=== PATIENT | male | born 1980 | race Caucasian/White ===

== ENCOUNTER 2022-04-04 21:41 | Inpatient (IN) | payer OTHER ==
[2022-04-04] MEDS ORDERED: SODIUM CHLORIDE 0.9% 1,000 ML IV ONE (22:27)
[2022-04-04] MEDS ORDERED: LORazepam 2 MG/ML INJ IV STA (22:28)
[2022-04-04 22:46] LABS: Basophils # (A) 0.1 k/uL (0-0.2); Basophils % (A) 1 %; Eosinophils # (A) 0.1 k/uL (0-0.7); Eosinophils % (A) 1 %; HGB 14.4 gm/dL (13.0-17.5); Lymphocytes # (A) 1.1 k/uL (1.0-4.8); Lymphocytes % (A) 16 %; MCH 33.6 pg (25.0-35.0); MCHC 35.1 g/dL (31.0-37.0); MCV 95.9 fL (80.0-100.0); Mean Platelet Volume 10.2; Monocytes # (A) 0.5 k/uL (0-1.0); Monocytes % (A) 7 %; Neutrophils # (A) 5.3 k/uL (1.3-7.7); Neutrophils % (A) 74 %; Platelet Count 119 k/uL (150-450); RBC 4.27 m/uL (4.30-5.90); RDW 12.5 % (11.5-15.5); WBC 7.2 k/uL (3.8-10.6)
[2022-04-04 22:58] LABS: ALT 116 U/L (4-49); AST 84 U/L (17-59); African American GFR (CKD) >90 (>60 ml/min/1.73 sqM); Albumin 3.7 g/dL (3.5-5.0); Alcohol <10 mg/dL; Alkaline Phosphatase 85 U/L (38-126); Anion Gap 8 mmol/L; Blood Urea Nitrogen 5 mg/dL (9-20); Calcium 9.2 mg/dL (8.4-10.2); Carbon Dioxide 26 mmol/L (22-30); Chloride 102 mmol/L (98-107); Glucose 100 mg/dL (74-99); Magnesium 1.5 mg/dL (1.6-2.3); Non-African American GFR(CKD) >90 (>60 ml/min/1.73 sqM); Potassium 3.7 mmol/L (3.5-5.1); Sodium 136 mmol/L (137-145); Total Bilirubin 1.7 mg/dL (0.2-1.3); Total Protein 6.4 g/dL (6.3-8.2)
--- NOTE | 2022-04-04 23:03 | ED ---
General Adult HPI - General Chief complaint: Alcohol Stated complaint: Hallucinations Time Seen by Provider: 04/04/22 21:55 Source: patient Mode of arrival: EMS - History of Present Illness Initial comments: This patient is a 41-year-old man who presents here with symptoms that may be related to alcohol withdrawal. The patient states she had been at [facility] where he had gone to stop drinking. He states he had been drinking approximately a pint per day and stopped number days ago. He states that the medication that they were giving him there was making him feel not right. He states that he wasn't able to walk to the bathroom there. He states he was walking into the gan. The patient feeling anxious and not right. Patient believes they were giving him clonidine. Patient tried reporting his symptoms to staff there but states that they were not receptive to his complaints and that they had him sign out. The patient denies headache, change in vision, other neurologic symptoms, chest pain, dyspnea. -: days(s) Severity scale (1-10): 0 Consistency: constant Improves with: none Worsens with: none Associated Symptoms: confusion Treatments Prior to Arrival: other - Related Data Home Medications Medication Instructions Recorded Confirmed Amitriptyline HCl [Elavil] 10 mg PO DAILY 04/05/22 04/05/22 Calcium/Magnesiun/Zinc/Vitamin D 1 tab PO TID PRN 04/05/22 04/05/22 334/134/5mg Chlorpheniramine Maleate 4 mg PO Q4H PRN 04/05/22 04/05/22 [Chlor-Trimeton] Fenofibrate,Micronized 67 mg PO DAILY 04/05/22 04/05/22 [Fenofibrate] Hyoscyamine Sulfate [Levsin] 0.125 mg PO QID PRN 04/05/22 04/05/22 cloNIDine HCL [Catapres] 0.1 - 0.3 mg PO Q4H PRN 04/05/22 04/05/22 lisinopriL [Zestril] 10 mg PO DAILY 04/05/22 04/05/22 Previous Rx's Medication Instructions Recorded Folic Acid 1 mg PO DAILY #30 tab 04/06/22 Magnesium Oxide [Mag-Ox] 400 mg PO BID #14 tab 04/06/22 Multivitamins, Thera [Multivitamin 1 each PO DAILY #30 tab 04/06/22 (formulary)] Naltrexone HCl [Revia] 50 mg PO DAILY #30 tablet 04/06/22 Omeprazole [PriLOSEC] 20 mg PO BID #60 cap 04/06/22 Thiamine [Vitamin B-1] 100 mg PO DAILY #30 tab 04/06/22 Allergies Allergy/AdvReac Type Severity Reaction Status Date / Time amoxicillin Allergy Hives all Verified 04/05/22 11:27 over body Penicillins Allergy Hives all Verified 04/05/22 11:27 over body Review of Systems ROS Statement: Those systems with pertinent positive or pertinent negative responses have been documented in the HPI. ROS Other: All systems not noted in ROS Statement are negative. Constitutional: Denies: fever, weakness Eyes: Denies: vision change Respiratory: Denies: cough, dyspnea Cardiovascular: Reports: palpitations. Denies: chest pain, syncope Gastrointestinal: Reports: nausea. Denies: abdominal pain, vomiting, diarrhea Genitourinary: Denies: dysuria, hematuria Musculoskeletal: Denies: back pain Skin: Denies: rash Neurological: Denies: headache, weakness, numbness Psychiatric: Reports: anxiety. Denies: depression, homicidal thoughts, suicidal thoughts Past Medical History Additional Past Medical History / Comment(s): peptic ulcer, etoh abuse History of Any Multi-Drug Resistant Organisms: None Reported Past Surgical History: No Surgical Hx Reported Past Psychological History: No Psychological Hx Reported Smoking Status: Former smoker Past Alcohol Use History: Abuse Past Drug Use History: Marijuana General Exam General appearance: alert, in no apparent distress Head exam: Present: atraumatic, normocephalic Eye exam: Present: normal appearance. Absent: scleral icterus, conjunctival injection ENT exam: Present: mucous membranes dry Neck exam: Present: normal inspection Respiratory exam: Present: normal lung sounds bilaterally. Absent: respiratory distress, wheezes, rales, rhonchi, stridor Cardiovascular Exam: Present: normal rhythm, tachycardia, normal heart sounds. Absent: systolic murmur, diastolic murmur, rubs, gallop GI/Abdominal exam: Present: soft. Absent: distended, tenderness, guarding, rebound, rigid, mass, pulsatile mass, hernia Extremities exam: Present: normal inspection, normal capillary refill. Absent: pedal edema, calf tenderness Neurological exam: Present: alert, oriented X3. Absent: motor sensory deficit Skin exam: Present: warm, dry, intact, normal color. Absent: rash Course Vital Signs 04/04/22 04/05/22 22:00 00:42 Temperature 98.2 F 98.5 F Pulse Rate 117 H 115 H Respiratory 20 19 Rate Blood Pressure 124/88 130/88 O2 Sat by Pulse 98 97 Oximetry Medical Decision Making - Medical Decision Making This patient has a 41-year-old man here to have evaluation of suspected onset of delirium tremens. The patient's history consistent with developing of delirium tremens. The patient will be admitted for further treatment Were old charts reviewed? @ -[No Differential Diagnosis? @ -[Differential diagnosis includes but not limited to alcohol withdrawal, medication side effect, substance abuse, fluid/electrolyte abnormality, viral syndrome EKG interpreted by me (3pts min.)? @ -[none] X-rays interpreted by me (1pt min.)? @ -[See chart CT interpreted by me (1pt min.)? @ -[none] U/S interpreted by me (1pt. min.)? @ -[none] What testing was considered but not performed? (CT, X-rays, U/S, labs)? Why? @ [None What meds were considered but not given? Why? @ -[none] Did you discuss the management of the patient with other professionals? @ -[Admitting physician Did you reconcile home meds? @ -[Yes Was smoking cessation discussed for >3mins.? @ -[none] Was critical care preformed (if so, how long)? @ -[none] Were there social determinants of health that impacted care today? How? (Homelessness, low income, unemployed, alcoholism, drug addiction, transportation, low edu. Level, literacy, decrease access to med. care, fpc, rehab)? @ -[No Was there de-escalation of care discussed even if they declined? (Discuss DNR or withdrawal of care, Hospice)? @ -[No What co-morbidities impacted this encounter? (DM, HTN, Smoking, COPD, CAD, Cancer, CVA, Hep., AIDS, mental health diagnosis, sleep apnea, morbid obesity)? @ -[None Was patient admitted / discharged? @ -[Admitted Undiagnosed new problem with uncertain prognosis? @ -[none] Drug Therapy requiring intensive monitoring for toxicity (Heparin, Nitro, Insulin, Cardizem)? @ -[none] Were any procedures done? @ -[none] Diagnosis/symptom? @ -[1. Acute alcohol withdrawal syndrome Acute, or Chronic, or Acute on Chronic? @ -[default] Uncomplicated (without systemic symptoms) or Complicated (systemic symptoms)? @ -[Complicated Side effects of treatment? @ -[none] Exacerbation, Progression, or Severe Exacerbation] @ -[no] Poses a threat to life or bodily function? @ -[Yes - Lab Data Result diagrams: 04/04/22 22:36 04/06/22 04:33 Lab Results 04/04/22 04/04/22 Range/Units 22:36 22:36 WBC 7.2 (3.8-10.6) k/uL RBC 4.27 L (4.30-5.90) m/uL Hgb 14.4 (13.0-17.5) gm/dL Hct 41.0 (39.0-53.0) % MCV 95.9 (80.0-100.0) fL MCH 33.6 (25.0-35.0) pg MCHC 35.1 (31.0-37.0) g/dL RDW 12.5 (11.5-15.5) % Plt Count 119 L (150-450) k/uL MPV 10.2 Neutrophils % 74 % Lymphocytes % 16 % Monocytes % 7 % Eosinophils % 1 % Basophils % 1 % Neutrophils # 5.3 (1.3-7.7) k/uL Lymphocytes # 1.1 (1.0-4.8) k/uL Monocytes # 0.5 (0-1.0) k/uL Eosinophils # 0.1 (0-0.7) k/uL Basophils # 0.1 (0-0.2) k/uL Sodium 136 L (137-145) mmol/L Potassium 3.7 (3.5-5.1) mmol/L Chloride 102 (98-107) mmol/L Carbon Dioxide 26 (22-30) mmol/L Anion Gap 8 mmol/L BUN 5 L (9-20) mg/dL Creatinine 0.68 (0.66-1.25) mg/dL Est GFR (CKD-EPI)AfAm >90 (>60 ml/min/1.73 sqM) Est GFR (CKD-EPI)NonAf >90 (>60 ml/min/1.73 sqM) Glucose 100 H (74-99) mg/dL Calcium 9.2 (8.4-10.2) mg/dL Magnesium 1.5 L (1.6-2.3) mg/dL Total Bilirubin 1.7 H (0.2-1.3) mg/dL AST 84 H (17-59) U/L ALT 116 H (4-49) U/L Alkaline Phosphatase 85 (38-126) U/L Total Protein 6.4 (6.3-8.2) g/dL Albumin 3.7 (3.5-5.0) g/dL Serum Alcohol <10 mg/dL Disposition Clinical Impression: Alcohol withdrawal Disposition: ADMITTED IP TO THIS HOSP Condition: Fair Is patient prescribed a controlled substance at d/c from ED?: No
[2022-04-05] MEDS ORDERED: NALOXONE 0.4 MG/ML 1 ML VIAL IV PRN (00:19)
[2022-04-05] MEDS ORDERED: ONDANSETRON 4 MG/2 ML VIAL IVP PRN (00:19)
[2022-04-05] MEDS ORDERED: LORazepam 2 MG/ML INJ IV PRN ×3 (00:24)
[2022-04-05] MEDS: SODIUM CHLORIDE 0.9% 1,000 ML IV SCH ×2 (01:02→09:59)
[2022-04-05] MEDS: LORazepam 1 MG TAB PO PRN ×3 (01:59→20:18)
[2022-04-05] MEDS: diazePAM 5 MG TAB PO SCH ×3 (02:50→16:11)
[2022-04-05] MEDS ORDERED: chlordiazePOXIDE 25 MG CAP PO PRN (04:00)
[2022-04-05] MEDS ORDERED: ACETAMINOPHEN TAB 325 MG TAB PO PRN (06:00)
[2022-04-05] MEDS: THIAMINE 100 MG TAB PO SCH (07:48)
[2022-04-05] MEDS: FOLIC ACID 1 MG TAB PO SCH (07:48)
[2022-04-05] MEDS: FAMOTIDINE 20 MG TAB PO SCH ×2 (07:48→20:18)
[2022-04-05] MEDS ORDERED: LOPERAMIDE 2 MG CAP PO PRN (12:06)
[2022-04-05] MEDS ORDERED: HYOSCYAMINE SULFATE 0.125 MG TAB PO PRN (12:06)
[2022-04-05] MEDS ORDERED: ONDANSETRON 4 MG TAB PO PRN (12:06)
[2022-04-05] MEDS: AMITRIPTYLINE HCL 10 MG TAB PO SCH (12:56)
[2022-04-05] MEDS: FENOFIBRATE 54 MG TAB PO SCH (12:56)
[2022-04-05] MEDS: PANTOPRAZOLE 40 MG TABLET PO SCH ×2 (12:56→20:17)
[2022-04-05] MEDS: lisinopriL 10 MG TAB PO SCH (12:56)
--- NOTE | 2022-04-05 14:14 | P.PN ---
Progress Note - Text Progress Note Date: 04/05/22 Psychiatry consult brief note: Patient was evaluated today and does NOT meet criteria for inpatient psychiatric admission at this time. Continue CIWA and Valium taper for alcohol withdrawal. Full consult note to follow.
[2022-04-05] MEDS: ENOXAPARIN 40 MG/0.4 ML SYRINGE SQ SCH (16:11)
--- NOTE | 2022-04-05 21:08 | P.HPIM ---
History of Present Illness H&P Date: 04/05/22 Chief Complaint: Not feeling well This is a 41-year-old patient with no family doctor. Chronic stable medical conditions include alcohol use disorder, peptic ulcer disease, hypertension, hyperlipidemia GERD,. Patient has been drinking over a pint of alcohol a day for greater than 10 years. Patient is currently been admitted to the [facility] for last 3 days. Is getting some medication he sees starts with the alphabet C hasn't making him confused losing his head and patient been falling. Has patient's had decided to come in. Patient's front of alcohol withdrawal. Was put on CIWA scale Valium. Denies any abdominal pain. Appetite is fair. Review of systems: GEN.: Tired EYES: None HEENT: None NECK: None RESPIRATORY: None CARDIOVASCULAR: None GASTROINTESTINAL: Heartburn GENITOURINARY: None MUSCULOSKELETAL: None LYMPHATICS: None HEMATOLOGICAL: None PSYCHIATRY: Anxious NEUROLOGICAL: Had tremors Past medical history to include: Peptic ulcer disease, alcohol use disorder, GERD, hypertension, hyperlipidemia Social history: Currently living with his mother. No smoking stated was drinking at least a pint a day for more than 10 years. Currently at [facility]. Physical examination: VITAL SIGNS: 97.5, 117, 20, 124/88, 98% on room air upon presentation GENERAL: RONY 28.6, laying in bed a bit anxious. Face is flushed EYES: Pupils equal. Conjunctiva normal. HEENT: External appearance of nose and ears normal, oral cavity grossly normal. NECK: JVD not raised; masses not palpable. HEART: First and second heart sounds are normal; no edema. LUNGS: Respiratory rate normal; clear to auscultation. ABDOMEN: Soft, nontender, liver spleen not palpable, no masses palpable. PSYCH: Alert and oriented x3; mood and affect anxiousl. MUSCULOSKELETAL:No Clubbing/cyanosis;muscles-grossly intact NEUROLOGICAL: Cranial nerves grossly intact; no facial asymmetry, power and sensation grossly intact. LYMPHATICS: No lymph nodes palpable in the axilla and neck INVESTIGATIONS, reviewed in the clinical context: White count 7.2 hemoglobin 14.4 platelets 119 sodium 136 progression 3.7. 5 creatinine 0.6 magnesium 1.5 total bilirubin 1.7 AST 84 ALT 116 Serum alcohol less than 10 Assessment and plan: -Delirium tremens on presentation: Better CIWA scale. Valium. -Alcohol withdrawal syndrome Patient is on Valium 5 mg every 8. Will cut back to 2.5 mg every 8. CIWA scale scheduled to continue. Tremors are better. -Essential hypertension Zestril -Peptic ulcer disease Protonix -Alcoholic hepatitis -Hypomagnesemia Replace magnesium Valium. Cutback dose. CIWA scale. Increase activity. Encourage oral intake. Discussed with patient. Patient does not want to return [facility]. Past Medical History Additional Past Medical History / Comment(s): peptic ulcer, etoh abuse History of Any Multi-Drug Resistant Organisms: None Reported Past Surgical History: No Surgical Hx Reported Past Psychological History: No Psychological Hx Reported Smoking Status: Former smoker Past Alcohol Use History: Abuse Past Drug Use History: Marijuana Medications and Allergies Home Medications Medication Instructions Recorded Confirmed Type Acetaminophen Tab [Tylenol] 650 mg PO Q4H PRN 04/05/22 04/05/22 History Amitriptyline HCl [Elavil] 10 mg PO DAILY 04/05/22 04/05/22 History Ativan 1mg Injection 1 - 2 mg IM Q4H PRN 04/05/22 04/05/22 History Calcium/Magnesiun/Zinc/Vitamin D 1 tab PO TID PRN 04/05/22 04/05/22 History 334/134/5mg Chlorpheniramine Maleate 4 mg PO Q4H PRN 04/05/22 04/05/22 History [Chlor-Trimeton] Fenofibrate,Micronized 67 mg PO DAILY 04/05/22 04/05/22 History [Fenofibrate] Hyoscyamine Sulfate [Levsin] 0.125 mg PO QID PRN 04/05/22 04/05/22 History Ibuprofen [Motrin] 600 mg PO Q6H PRN 04/05/22 04/05/22 History LORazepam [Ativan] 1 - 2 mg PO Q4-6H PRN 04/05/22 04/05/22 History Loperamide [Imodium] 4 mg PO QID PRN 04/05/22 04/05/22 History Omeprazole [PriLOSEC] 20 mg PO BID 04/05/22 04/05/22 History cloNIDine HCL [Catapres] 0.1 - 0.3 mg PO Q4H PRN 04/05/22 04/05/22 History lisinopriL [Zestril] 10 mg PO DAILY 04/05/22 04/05/22 History ondansetron HCL [Zofran] 8 mg PO Q6H PRN 04/05/22 04/05/22 History traZODone HCL [Desyrel] 50 - 150 mg PO HS PRN 04/05/22 04/05/22 History Allergies Allergy/AdvReac Type Severity Reaction Status Date / Time amoxicillin Allergy Hives all Verified 04/05/22 11:27 over body Penicillins Allergy Hives all Verified 04/05/22 11:27 over body Physical Exam Vitals: Vital Signs Temp Pulse Pulse Resp BP BP Pulse Ox 04/05/22 07:06 98.2 F 115 H 18 125/94 99 04/05/22 01:34 97.5 F L 105 H 18 128/84 97 04/05/22 00:42 98.5 F 115 H 19 130/88 97 04/04/22 22:00 98.2 F 117 H 20 124/88 98 Intake and Output 04/04/22 04/05/22 04/05/22 22:59 06:59 14:59 Output Total 250 Balance -250 Output: Urine 250 Other: # Voids 1 Weight 92.986 kg 92.986 kg Results CBC & Chem 7: 04/04/22 22:36 04/04/22 22:36 Labs: Abnormal Lab Results - Last 24 Hours (Table) 04/04/22 04/04/22 Range/Units 22:36 22:36 RBC 4.27 L (4.30-5.90) m/uL Plt Count 119 L (150-450) k/uL Sodium 136 L (137-145) mmol/L BUN 5 L (9-20) mg/dL Glucose 100 H (74-99) mg/dL Magnesium 1.5 L (1.6-2.3) mg/dL Total Bilirubin 1.7 H (0.2-1.3) mg/dL AST 84 H (17-59) U/L ALT 116 H (4-49) U/L
[2022-04-05] MEDS: MAGNESIUM OXIDE 400 MG TAB PO SCH (21:28)
[2022-04-05] MEDS: MULTIVITAMINS, THERA 1 EACH TAB PO SCH (21:28)
[2022-04-06] MEDS: diazePAM 5 MG TAB PO SCH ×2 (00:10→09:11)
--- NOTE | 2022-04-06 00:30 | P.CN ---
Psychiatric Consult - . Consult date: 04/05/22 Consult:: IDENTIFYING DATA: This patient is a 41 year old male with alcohol dependence who presented from [facility] for alcohol detox. REASON FOR REFERRAL: Psychiatry was consulted for alcohol withdrawal. HISTORY OF PRESENT ILLNESS: Per ER note, "This patient is a 41-year-old man who presents here with symptoms that may be related to alcohol withdrawal. The patient states she had been at [facility] where he had gone to stop drinking. He states he had been drinking approximately a pint per day and stopped number days ago. He states that the medication that they were giving him there was making him feel not right. He states that he wasn't able to walk to the bathroom there. He states he was walking into the gan. The patient feeling anxious and not right. Patient believes they were giving him c lonidine. Patient tried reporting his symptoms to staff there but states that they were not receptive to his complaints and that they had him sign out. The patient denies headache, change in vision, other neurologic symptoms, chest pain, dyspnea." On my evaluation today, patient is resting in bed, is alert and oriented to person, place, time and situation. No tremors, shaking, sweating, or agitation observed. He is tolerating his Valium taper, currently at 5 mg Q8H scheduled, and so far he has received Ativan 2 mg IV x 1, Ativan 1 mg po x 1 today. His vital signs reviewed and he is mildly tachycardic. He reports feeling somewhat anxious, but denies depressed mood. At this time patient denies any suicidal or homicidal ideations, intent or plan. Patient denies any auditory, visual halluci nations and denies any paranoia or delusions. Patients admits to using drinking 1 pint of liquor per day and wants to quit. He does not plan to return to [facility] following discharge because he didn't like it there, and instead plans to do AA meetings to abstain from alcohol. He reports his last drink of alcohol was last Wednesday. PAST PSYCHIATRIC HISTORY: Patient has a a history of alcoholism. Patient denies being on any psychiatric medications. Patient denies any previous psychiatric hospitalizations. Patient denies any psychiatric outpatient follow-up. He reports he previously received counseling near [address] [place] [address], but this was years ago. Patient denies any history of suicide attempts in the past. PAST MEDICAL HISTORY: Additional Past Medical History / Comment(s): peptic ulcer, etoh abuse History of Any Multi-Drug Resistant Organisms: None Reported Past Surgical History: No Surgical Hx Reported Past Psychological History: No Psychological Hx Reported Smoking Status: Former smoker Past Alcohol Use History: Abuse Past Drug Use History: Marijuana ALLERGIES: as per EMR. CHEMICAL DEPENDENCY HISTORY: Patients admits to using drinking 1 pint of liquor per day and wants to quit. He reports his last drink of alcohol was last Wednesday. He is a former smoker and quit smoking cigarettes 7-8 years ago. He denies drug use. FAMILY PSYCHIATRIC/SUBSTANCE USE HISTORY: Father with alcoholism SOCIAL HISTORY: Patient was born and raised in [place], [place]. He was living with his girlfriend of 18 years until a recent break-up, and he has been staying with his mother temporarily, but thinks he and his girlfriend will be getting back together and he can go back to living there. Never , has 3 kids. MENTAL STATUS EXAM: General Appearance: Patient appears to be stated age, slightly overweight male, laying in bed with covers on, fair hygiene and grooming with fair eye contact. Behavior: Patient is calmly lying in bed without any agitated behavior. Speech: Patient's speech is fluent and non-pressured. Mood/Affect: Patient reports their mood is "ok" a bit anxious, affect is congruent Suicidality/Homicidality: Patient denies having any suicidal or homicidal ideation intent or plan. Perceptions: Patient denies any visual hallucinations and denies any auditory hallucinations Though content/process: There is no evidence of any delusional thought content and thought process is linear and goal-directed. Memory and concentration: AOX3, grossly intact for the purposes of this session. Can spell "WORLD" backwards Judgment and insight: fair IMPRESSIONS: Alcohol use disorder, severe dependence Alcohol withdrawal Unspecified anxiety disorder PLAN: -At this time patient DOES NOT meet criteria for inpatient psychiatric admission. -Delirium precautions recommended with patient including - avoiding use of narcotics and ORNAMENT MAKER HAND sedatives, limit anticholinergic medications when possible, frequent re-orientation, minimize use of restraints, open window shades during t he day and close them at night -Would recommend the following medication changes/additions: Continue CIWA and Valium taper and Ativan PRN as you are. Monitor vital signs closely. - Continue to re-evaluate safety and initiate 1:1 sitter if safety concerns arise. -housekeeping laundry worker to provide patient with outpatient mental health/psychiatry resources for appropriate follow up upon discharge. He would benefit from psychotherapy for anxiety and life stressors. -Wire Basket Maker spoke with patient about substance abuse and the harmful effects on medical and mental health, patient verbally understood and agreed. -housekeeping laundry worker to provide patient substance use treatment resources including AA/NA meetings in the community. -housekeeping laundry worker to provide patient with access line number to call for inpatient substance rehab. [-Communicated plan to patient's nurse] -Psychiatry will sign off at this time -Please contact with any questions. 04/05/22 12:49 04/05/22 12:55 04/06/22 00:15
[2022-04-06 01:54] VITALS: RESP 17
[2022-04-06 05:03] LABS: ALT 98 U/L (4-49); AST 77 U/L (17-59); African American GFR (CKD) >90 (>60 ml/min/1.73 sqM); Albumin 3.8 g/dL (3.5-5.0); Albumin/Globulin Ratio 1.4; Alkaline Phosphatase 87 U/L (38-126); Anion Gap 9 mmol/L; Blood Urea Nitrogen 3 mg/dL (9-20); Calcium 8.9 mg/dL (8.4-10.2); Carbon Dioxide 27 mmol/L (22-30); Chloride 103 mmol/L (98-107); Globulin 2.7 g/dL; Glucose 93 mg/dL (74-99); Magnesium 1.8 mg/dL (1.6-2.3); Non-African American GFR(CKD) >90 (>60 ml/min/1.73 sqM); Potassium 3.8 mmol/L (3.5-5.1); Sodium 139 mmol/L (137-145); Total Bilirubin 1.4 mg/dL (0.2-1.3); Total Protein 6.5 g/dL (6.3-8.2)
[2022-04-06 07:18] VITALS: BP 138/99; PULSE 93; TEMP 97.8
[2022-04-06] MEDS ORDERED: THIAMINE 100 MG TAB PO SCH (09:00)
[2022-04-06] MEDS: PANTOPRAZOLE 40 MG TABLET PO SCH (09:10)
[2022-04-06] MEDS: MAGNESIUM OXIDE 400 MG TAB PO SCH (09:10)
[2022-04-06] MEDS: MULTIVITAMINS, THERA 1 EACH TAB PO SCH (09:10)
[2022-04-06] MEDS: ENOXAPARIN 40 MG/0.4 ML SYRINGE SQ SCH (09:11)
[2022-04-06] MEDS: FOLIC ACID 1 MG TAB PO SCH (09:11)
[2022-04-06] MEDS: lisinopriL 10 MG TAB PO SCH (09:11)
[2022-04-06] MEDS: THIAMINE 100 MG TAB PO SCH (09:11)
[2022-04-06] MEDS: AMITRIPTYLINE HCL 10 MG TAB PO SCH (09:11)
[2022-04-06] MEDS: FENOFIBRATE 54 MG TAB PO SCH (09:11)
--- NOTE | 2022-04-06 21:48 | P.DS ---
Providers Date of admission: 04/05/22 00:24 Expected date of discharge: 04/06/22 Attending physician: Prabhjot Paniagua Consults: 04/05/22 00:19 Consult Physician Routine Consulting Provider: Laura Escobedo Consult Reason/Comments: Alcohol withdrawal. Do you want consulting provider notified?: Yes Primary care physician: Stated None Hospital Course: Chief Complaint: Not feeling well This is a 41-year-old patient with no family doctor. Chronic stable medical conditions include alcohol use disorder, peptic ulcer disease, hypertension, hyperlipidemia GERD,. Patient has been drinking over a pint of alcohol a day for greater than 10 years. Patient is currently been admitted to the [facility] for last 3 days. Is getting some medication he sees starts with the alphabet C hasn't making him confused losing his head and patient been falling. Has patient's had decided to come in. Patient's front of alcohol withdrawal. Was put on CIWA scale Valium. Denies any abdominal pain. Appetite is fair. April 06: Doing well. Half Valium. Discussed with patient. Discussed about naltrexone. Agreeable. Follow with Dr. Mackenzie Godinez about chronic hepatitis. Patient has a PCP out of the area with with home he will follow. Questions answered. Discussion and discharge planning more than 35 minutes Past medical history to include: Peptic ulcer disease, alcohol use disorder, GERD, hypertension, hyperlipidemia Social history: Currently living with his mother. No smoking stated was drinking at least a pint a day for more than 10 years. Currently at [facility]. Physical examination: VITAL SIGNS: 97.8, 93, 17, 138.99, 98% room air GENERAL: Comfortable EYES: Pupils equal. Conjunctiva normal. HEENT: External appearance of nose and ears normal, oral cavity grossly normal. NECK: JVD not raised; masses not palpable. HEART: First and second heart sounds are normal; no edema. LUNGS: Respiratory rate normal; clear to auscultation. ABDOMEN: Soft, nontender, liver spleen not palpable, no masses palpable. PSYCH: Alert and oriented x3; mood and affect anxiousl. INVESTIGATIONS, reviewed in the clinical context: April 06: AST 77 ALT 98 White count 7.2 hemoglobin 14.4 platelets 119 sodium 136 progression 3.7. 5 creatinine 0.6 magnesium 1.5 total bilirubin 1.7 AST 84 ALT 116 Serum alcohol less than 10 Assessment and plan: -Delirium tremens on presentation: Better CIWA scale. Valium. -Alcohol withdrawal syndrome: Improved -Alcohol use disorder Patient counseled.. Naltrexone -Essential hypertension Zestril -Peptic ulcer disease Protonix -Alcoholic hepatitis -Hypomagnesemia Replace magnesium Disposition: Home Plan - Discharge Summary Discharge Rx Participant: No New Discharge Prescriptions: New Multivitamins, Thera [Multivitamin (formulary)] 1 each PO DAILY #30 tab Thiamine [Vitamin B-1] 100 mg PO DAILY #30 tab Naltrexone HCl [Revia] 50 mg PO DAILY #30 tablet Folic Acid 1 mg PO DAILY #30 tab Magnesium Oxide [Mag-Ox] 400 mg PO BID #14 tab Continue Chlorpheniramine Maleate [Chlor-Trimeton] 4 mg PO Q4H PRN PRN Reason: Allergy Symptoms Calcium/Magnesiun/Zinc/Vitamin D 334/134/5mg 1 tab PO TID PRN PRN Reason: muscle cramps Amitriptyline HCl [Elavil] 10 mg PO DAILY Omeprazole [PriLOSEC] 20 mg PO BID #60 cap Discontinued Acetaminophen Tab [Tylenol] 650 mg PO Q4H PRN PRN Reason: Fever And/ Or Pain Loperamide [Imodium] 4 mg PO QID PRN PRN Reason: Diarrhea ondansetron HCL [Zofran] 8 mg PO Q6H PRN PRN Reason: Nausea And Vomiting traZODone HCL [Desyrel] 50 - 150 mg PO HS PRN PRN Reason: Insomnia Ativan 1mg Injection 1 - 2 mg IM Q4H PRN PRN Reason: withdrawal Ibuprofen [Motrin] 600 mg PO Q6H PRN PRN Reason: Fever And/ Or Pain LORazepam [Ativan] 1 - 2 mg PO Q4-6H PRN PRN Reason: withdrawal No Action Fenofibrate,Micronized [Fenofibrate] 67 mg PO DAILY Hyoscyamine Sulfate [Levsin] 0.125 mg PO QID PRN PRN Reason: Gi Upset lisinopriL [Zestril] 10 mg PO DAILY cloNIDine HCL [Catapres] 0.1 - 0.3 mg PO Q4H PRN PRN Reason: bp greater than 160/100 Discharge Medication List Amitriptyline HCl [Elavil] 10 mg PO DAILY 04/05/22 [History] Calcium/Magnesiun/Zinc/Vitamin D 334/134/5mg 1 tab PO TID PRN 04/05/22 [History] Chlorpheniramine Maleate [Chlor-Trimeton] 4 mg PO Q4H PRN 04/05/22 [History] Fenofibrate,Micronized [Fenofibrate] 67 mg PO DAILY 04/05/22 [History] Hyoscyamine Sulfate [Levsin] 0.125 mg PO QID PRN 04/05/22 [History] cloNIDine HCL [Catapres] 0.1 - 0.3 mg PO Q4H PRN 04/05/22 [History] lisinopriL [Zestril] 10 mg PO DAILY 04/05/22 [History] Folic Acid 1 mg PO DAILY #30 tab 04/06/22 [Rx] Magnesium Oxide [Mag-Ox] 400 mg PO BID #14 tab 04/06/22 [Rx] Multivitamins, Thera [Multivitamin (formulary)] 1 each PO DAILY #30 tab 04/06/22 [Rx] Naltrexone HCl [Revia] 50 mg PO DAILY #30 tablet 04/06/22 [Rx] Omeprazole [PriLOSEC] 20 mg PO BID #60 cap 04/06/22 [Rx] Thiamine [Vitamin B-1] 100 mg PO DAILY #30 tab 04/06/22 [Rx] Follow up Appointment(s)/Referral(s): Bren Godinez MD [STAFF PHYSICIAN] - 2 Weeks None,Stated [Primary Care Provider] - 1-2 days Activity/Diet/Wound Care/Special Instructions: pt has a new pcp - follow up Discharge/Stand Alone Forms: AA Meetings [place], Outpatient Counseling, Inp Substance Abuse Facilities Discharge Disposition: HOME SELF-CARE
== END 2022-04-06 12:16 | disposition home or self-care (01) | DRG 897 ==
LOC: EC 21:41 → 4SSUR 04-05 00:24
PROVIDERS: ADMIT Hospitalist; ATTEND Hospitalist
PROC: HZ2ZZZZ Detoxification Services for Substance Abuse Treatment (ICD-10-PCS; principal; 2022-04-05)
DX: F10.231 Alcohol dependence with withdrawal delirium (principal); E83.42 Hypomagnesemia; F17.200 Nicotine dependence, unspecified, uncomplicated; K70.10 Alcoholic hepatitis without ascites; Z79.899 Other long term (current) drug therapy; R00.0 Tachycardia, unspecified; Z87.11 Personal history of peptic ulcer disease; Y90.0 Blood alcohol level of less than 20 mg/100 ml; K21.9 Gastro-esophageal reflux disease without esophagitis; I10 Essential (primary) hypertension; E78.5 Hyperlipidemia, unspecified; Z88.0 Allergy status to penicillin; Z88.1 Allergy status to other antibiotic agents
CPT/HCPCS: 36415; 80053; 80320; 83735; 85025; 96361; 96374; 96376; 99285

== ENCOUNTER 2023-10-31 01:59 | Inpatient (IN) | payer OTHER ==
[2023-10-31] MEDS ORDERED: LORazepam 2 MG/ML INJ ONE ×5 (12:47→22:07)
[2023-10-31] MEDS ORDERED: ACETAMINOPHEN TAB 500 MG TAB ONE (12:52)
[2023-10-31] MEDS ORDERED: SODIUM CHLORIDE 0.9% 1,000 ML BAG ONE (13:09)
[2023-10-31] MEDS ORDERED: ASPIRIN 325 MG TAB ONE (13:09)
[2023-10-31] MEDS ORDERED: chlordiazePOXIDE 25 MG CAP ONE (21:53)
[2023-10-31] MEDS ORDERED: MAGNESIUM SULFATE-D5W PMX 200 ML IVPB ONE (21:53)
[2023-10-31] MEDS ORDERED: THIAMINE 100 MG/ML 2 ML VIAL ONE (23:47)
[2023-11-01] MEDS ORDERED: LORazepam 2 MG/ML INJ ONE ×8 (01:13→21:28)
[2023-11-01] MEDS ORDERED: THIAMINE 100 MG TAB ONE (14:44)
[2023-11-01] MEDS ORDERED: levETIRAcetam IV 500 MG/5 ML VIAL ONE (19:56)
[2023-11-01] MEDS ORDERED: cloNIDine HCL 0.1 MG TAB ONE (19:57)
[2023-11-02] MEDS ORDERED: LORazepam 2 MG/ML INJ ONE ×3 (01:02→21:31)
[2023-11-02] MEDS ORDERED: IBUPROFEN 400 MG TAB ONE (05:06)
[2023-11-02] MEDS ORDERED: ACETAMINOPHEN TAB 325 MG TAB ONE ×2 (09:08→21:28)
[2023-11-02] MEDS ORDERED: MULTIVITAMINS, THERA 1 EACH TAB ONE (09:09)
[2023-11-02] MEDS ORDERED: levETIRAcetam IV 500 MG/5 ML VIAL ONE (09:09)
[2023-11-02] MEDS ORDERED: THIAMINE 100 MG TAB ONE ×2 (09:09→21:53)
[2023-11-02] MEDS ORDERED: cloNIDine HCL 0.1 MG TAB ONE ×3 (09:09→21:53)
[2023-11-02] MEDS ORDERED: chlordiazePOXIDE 25 MG CAP ONE ×4 (09:09→21:33)
[2023-11-02] MEDS ORDERED: PANTOPRAZOLE 40 MG TABLET PO ONE (09:15)
[2023-11-02] MEDS ORDERED: MAGNESIUM SULFATE-D5W PMX 100 ML IVPB ONE (12:25)
[2023-11-02] MEDS ORDERED: POTASSIUM CHLORIDE ER 20 MEQ TAB.ER PO ONE ×2 (15:28→17:12)
[2023-11-02] MEDS ORDERED: cefTRIAXone 1 GM VIAL ONE (18:46)
[2023-11-02] MEDS ORDERED: SODIUM CHLORIDE 0.9% 50 ML BAG ONE (23:59)
[2023-11-03] MEDS ORDERED: MULTIVITAMINS, THERA 1 EACH TAB ONE (08:39)
[2023-11-03] MEDS ORDERED: chlordiazePOXIDE 25 MG CAP ONE ×3 (08:39→22:00)
[2023-11-03] MEDS ORDERED: THIAMINE 100 MG TAB ONE ×2 (08:39→21:56)
[2023-11-03] MEDS ORDERED: cefTRIAXone 1 GM VIAL ONE (08:39)
[2023-11-03] MEDS ORDERED: POTASSIUM CHLORIDE ER 20 MEQ TAB.ER PO ONE ×3 (16:17→19:03)
[2023-11-03] MEDS ORDERED: MAGNESIUM SULFATE-D5W PMX 100 ML IVPB ONE ×2 (16:17→17:35)
[2023-11-03] MEDS ORDERED: PANTOPRAZOLE 40 MG/10 ML VIAL ONE ×2 (16:23→21:54)
[2023-11-03] MEDS ORDERED: levETIRAcetam IV 500 MG/5 ML VIAL ONE (21:54)
[2023-11-03] MEDS ORDERED: cloNIDine HCL 0.1 MG TAB ONE (21:55)
[2023-11-03] MEDS ORDERED: IBUPROFEN 400 MG TAB ONE (21:55)
[2023-11-03] MEDS ORDERED: SODIUM CHLORIDE 0.9% 1,000 ML BAG ONE (23:59)
[2023-11-04] MEDS ORDERED: LORazepam 2 MG/ML INJ ONE (04:18)
[2023-11-04] MEDS ORDERED: cloNIDine HCL 0.1 MG TAB ONE ×2 (10:10→22:25)
[2023-11-04] MEDS ORDERED: chlordiazePOXIDE 25 MG CAP ONE ×2 (10:10→22:25)
[2023-11-04] MEDS ORDERED: MULTIVITAMINS, THERA 1 EACH TAB ONE (10:10)
[2023-11-04] MEDS ORDERED: THIAMINE 100 MG TAB ONE ×2 (10:10→22:25)
[2023-11-04] MEDS ORDERED: levETIRAcetam IV 500 MG/5 ML VIAL ONE ×2 (10:12→22:25)
[2023-11-04] MEDS ORDERED: PANTOPRAZOLE 40 MG/10 ML VIAL ONE ×2 (10:12→22:24)
[2023-11-04] MEDS ORDERED: IBUPROFEN 400 MG TAB ONE (19:34)
[2023-11-05] MEDS ORDERED: levETIRAcetam IV 500 MG/5 ML VIAL ONE ×2 (08:29→21:58)
[2023-11-05] MEDS ORDERED: PANTOPRAZOLE 40 MG/10 ML VIAL ONE ×2 (08:29→21:58)
[2023-11-05] MEDS ORDERED: MULTIVITAMINS, THERA 1 EACH TAB ONE (08:29)
[2023-11-05] MEDS ORDERED: cloNIDine HCL 0.1 MG TAB ONE ×3 (08:29→21:58)
[2023-11-05] MEDS ORDERED: THIAMINE 100 MG TAB ONE ×2 (08:30→21:59)
[2023-11-05] MEDS ORDERED: chlordiazePOXIDE 25 MG CAP ONE ×5 (08:31→22:04)
[2023-11-05] MEDS ORDERED: IBUPROFEN 400 MG TAB ONE ×2 (14:58→21:59)
[2023-11-05] MEDS ORDERED: LORazepam 1 MG TAB ONE (17:35)
[2023-11-05] MEDS ORDERED: SODIUM CHLORIDE 0.9% 500 ML BAG ONE (23:59)
[2023-11-05] MEDS ORDERED: SODIUM CHLORIDE 0.9% 100 ML BAG ONE (23:59)
[2023-11-05] MEDS ORDERED: SODIUM CHLORIDE 0.9% 50 ML BAG ONE (23:59)
[2023-11-06] MEDS ORDERED: levETIRAcetam IV 500 MG/5 ML VIAL ONE (09:33)
[2023-11-06] MEDS ORDERED: cloNIDine HCL 0.1 MG TAB ONE ×2 (09:33→13:25)
[2023-11-06] MEDS ORDERED: PANTOPRAZOLE 40 MG/10 ML VIAL ONE (09:33)
[2023-11-06] MEDS ORDERED: chlordiazePOXIDE 25 MG CAP ONE ×2 (09:34→13:26)
[2023-11-06] MEDS ORDERED: IBUPROFEN 400 MG TAB ONE (09:54)
[2023-11-06] MEDS ORDERED: LORazepam 1 MG TAB ONE (09:55)
[2023-11-06] MEDS ORDERED: SODIUM CHLORIDE 0.9% 100 ML BAG ONE (23:59)
[2023-11-06] MEDS ORDERED: SODIUM CHLORIDE 0.9% 50 ML BAG ONE (23:59)
[2023-11-07] MEDS ORDERED: ACETAMINOPHEN TAB 325 MG TAB PO PRN (00:08)
[2023-11-07] MEDS ORDERED: ONDANSETRON 4 MG/2 ML VIAL IVP PRN (00:09)
[2023-11-07] MEDS ORDERED: cloNIDine HCL 0.1 MG TAB PO PRN (00:09)
[2023-11-07] MEDS: SODIUM CHLORIDE 0.9% 1,000 ML IV SCH (03:13)
[2023-11-07 03:55] LABS: African American GFR (CKD) >90 (>60 ml/min/1.73 sqM); Anion Gap 2 mmol/L; Blood Urea Nitrogen 5 mg/dL (9-20); Calcium 8.9 mg/dL (8.4-10.2); Carbon Dioxide 31 mmol/L (22-30); Chloride 105 mmol/L (98-107); Glucose 99 mg/dL (74-99); Magnesium 1.6 mg/dL (1.6-2.3); Non-African American GFR(CKD) >90 (>60 ml/min/1.73 sqM); Potassium 3.6 mmol/L (3.5-5.1); Sodium 138 mmol/L (137-145)
[2023-11-07] MEDS: levETIRAcetam IV 500 MG/5 ML VIAL IVP SCH (08:28)
[2023-11-07] MEDS: chlordiazePOXIDE 25 MG CAP PO SCH (08:28)
[2023-11-07] MEDS: cloNIDine HCL 0.1 MG TAB PO SCH (08:28)
[2023-11-07] MEDS: PANTOPRAZOLE 40 MG/10 ML VIAL IVP SCH (08:28)
--- NOTE | 2023-11-07 11:42 | P.PN ---
Subjective Progress Note Date: 11/07/23 This is a 43-year-old male does not appear to follow with a PCP outpatient. Patient comes in with acute alcohol withdrawal seizure and decreased magnesium level 1.2 on admission. Patient had a witnessed seizure by his daughter did not have a fall or head injury. He was admitted to the hospital with neurology evaluation started on IV Ativan CIWA protocol. Patient has recovered and is now sober and not having any further evidence of alcohol withdrawal or seizure-like activity. He was evaluated closely by neurology had a brain MRI which was negative. The seizures were felt to be due to alcohol withdrawal he was started on IV Keppra and will continue this medication for now per neurology. Unable to complete an EEG during this hospital stay secondary to downtime procedures. Patient was recommended for EEG outpatient his hospital stay was complicated by a area of cellulitis to the left AC felt to be an infected IV site and his blood cultures did come back positive for Staph aureus ID was consulted and at this time patient remains on IV antibiotics and pending repeat blood cultures. He wi ll likely be discharged home tomorrow if blood cultures come back and are negative and patient is able to get a mdline placed. Review of Systems Constitutional: Denied any fatigue denied any fever. Cardio vascular: denied any chest pain, palpitations Gastrointestinal: denied any nausea, vomiting, diarrhea Pulmonary: Denied any shortness of breath cough Neurologic denied any new focal deficits All inpatient medications were reviewed and appropriate changes in these medications as dictated in the interval history and assessment and plan. PHYSICAL EXAMINATION: GENERAL: The patient is alert and oriented x3, not in any acute distress. Well developed, well nourished. HEENT: Pupils are round and equally reacting to light. EOMI. No scleral icterus. No conjunctival pallor. Normocephalic, atraumatic. No pharyngeal erythema. No thyromegaly. CARDIOVASCULAR: S1 and S2 present. No murmurs, rubs, or gallops. PULMONARY: Chest is clear to auscultation, no wheezing or crackles. ABDOMEN: Soft, nontender, nondistended, normoactive bowel sounds. No palpable organomegaly. MUSCULOSKELETAL: No joint swelling or deformity. EXTREMITIES: No cyanosis, clubbing, or pedal edema. NEUROLOGICAL: Gross neurological examination did not reveal any focal deficits. SKIN: No rashes. Assessment -Acute alcohol intoxication and withdrawal -Seizure activity x 2 due to alcohol withdrawal MRI brain negative -MSSA Bacteremia from infection IV site of the Left AC -Chronic alcoholism -Hypokalemia -Hypomagnesemia on admission due to the alcoholism. Plan Pending repeat blood cultures if they are negative ID has recommendations for a midline and 2 weeks of IV cefazolin Continue keppra per neurology and can change to oral dosing Patient will need outpatient EEG on discharge and neurology follow up. Continue to monitor for alcohol withdrawal and seizure precautions although at this time no evidence of. Monitor electrolytes. DC home in the next 24/48 hours Will need social work consultation for the IV antibiotics outpatient. The impression and plan of care has been dictated by Shannon Cuenca, Nurse Practitioner as directed. Dr. Jaime MD I have performed a history and physical examination and medical decision making of this patient, discussed the same with the dictator, and agree with the dictators assessment and plan as written, documented as a scribe. Based on total visit time, I have performed more than 50% of this visit. Objective - Vital Signs Vital signs: Vital Signs Temp 98.2 F 11/07/23 07:43 Pulse 79 11/07/23 08:25 Resp 17 11/07/23 08:25 BP 114/77 11/07/23 07:43 Pulse Ox 96 11/07/23 07:43 FiO2 Intake & Output 11/06/23 11/07/23 11/07/23 18:59 06:59 18:59 Weight 77.111 kg Other: Voiding Method Toilet # Voids 3 - Labs CBC & Chem 7: 11/07/23 02:31 Labs: Abnormal Lab Results - Last 24 Hours (Table) 11/07/23 Range/Units 02:31 Carbon Dioxide 31 H (22-30) mmol/L BUN 5 L (9-20) mg/dL Creatinine 0.53 L (0.66-1.25) mg/dL Assessment and Plan Time with Patient: Less than 30
[2023-11-07] MEDS ORDERED: Magnesium Replacement Protocol 1 EACH MISC MISCELLANE PRN (11:44)
[2023-11-07] MEDS: MAGNESIUM SULFATE-D5W PMX 1 GM in DEXTROSE/WATER 1 100ML.BAG IVPB SCH (12:12)
[2023-11-07] MEDS: IBUPROFEN 400 MG TAB PO PRN (12:22)
[2023-11-07] MEDS: LORazepam 1 MG TAB PO PRN (12:22)
--- NOTE | 2023-11-07 14:50 | P.PN ---
Subjective Progress Note Date: 11/07/23 Patient is doing well, laying comfortably in the bed. No further seizures. Elbow cellulitis much better. Objective - Vital Signs Vital signs: Vital Signs Temp 98.1 F 11/07/23 13:17 Pulse 85 11/07/23 13:17 Resp 17 11/07/23 13:17 BP 114/75 11/07/23 13:17 Pulse Ox 97 11/07/23 13:17 FiO2 Intake & Output 11/06/23 11/07/23 11/07/23 18:59 06:59 18:59 Weight 77.111 kg Other: Voiding Method Toilet # Voids 3 - Exam Mental status, speech and language functions are normal. Cranial nerves normal. Patient does have mild nystagmus noted in the end gaze bilaterally. Visual canales are full, face symmetric. On muscle strength testing there is no pronator drift and the strength is normal. No tremors of outstretched hands. Patient does have mild coarse tremors of hands for [id number] testing bilaterally. Sensory normal. - Labs CBC & Chem 7: 11/07/23 02:31 Labs: Abnormal Lab Results - Last 24 Hours (Table) 11/07/23 Range/Units 02:31 Carbon Dioxide 31 H (22-30) mmol/L BUN 5 L (9-20) mg/dL Creatinine 0.53 L (0.66-1.25) mg/dL Assessment and Plan Assessment: * Seizure, second onset, likely due to alcohol withdrawal. * History of alcohol withdrawal seizure once, 2 years ago as well. * Chronic alcoholism * History of concussions * Right IV site cellulitis, volar elbow region with bacteremia Plan: * MRI of the brain reported normal. No suspicious lesions. * EEG in the morning. * No indication for antiepileptic medication, as seizure likely provoked from alcohol withdrawal. * Continue thiamine, folate, multivitamins * Seizure restrictions including no driving for 6 months, climbing ladders, operating dangerous machinery or unsupervised event. * Patient on cefazolin for cellulitis with bacteremia. ID following. * Dr. Alberto Casey to resume neurology service over the weekend.
--- NOTE | 2023-11-07 21:06 | P.PN ---
Subjective Progress Note Date: 11/07/23 Principal diagnosis: Reason for follow-up is MSSA bacteremia and right upper extremity cellulitis Patient is a 43-year-old male initial presentation to hospital with acute alcohol withdrawal seizure subsequent developing a fever related to the right upper arm IV site cellulitis with MSSA bacteremia. On today's evaluation that is 11/07/2023,the patient denies any fever or any chills, patient is breathing comfortably on room air, the patient denies chest pain shortness of breath and no significant cough, patient denies abdominal pain, no nausea vomiting or diarrhea. Pain and swelling to the right upper extremity decrease in intensity. Patient did have creatinine 0.53 Objective - Vital Signs Vital signs: Vital Signs Temp 98.1 F 11/07/23 13:17 Pulse 85 11/07/23 13:17 Resp 17 11/07/23 13:17 BP 114/75 11/07/23 13:17 Pulse Ox 97 11/07/23 13:17 FiO2 Intake & Output 11/06/23 11/07/23 11/07/23 18:59 06:59 18:59 Weight 77.111 kg Other: Voiding Method Toilet # Voids 3 - Exam GENERAL DESCRIPTION: Middle-age male lying in bed in no distress RESPIRATORY SYSTEM: Unlabored breathing , decreased breath sounds at bases HEART: S1 S2 regular rate and rhythm , ABDOMEN: Soft , no tenderness EXTREMITIES: Right upper extremity swelling redness decreased - Labs CBC & Chem 7: 11/07/23 02:31 Labs: Abnormal Lab Results - Last 24 Hours (Table) 11/07/23 Range/Units 02:31 Carbon Dioxide 31 H (22-30) mmol/L BUN 5 L (9-20) mg/dL Creatinine 0.53 L (0.66-1.25) mg/dL Assessment and Plan (1) Right arm cellulitis Current Visit: Yes Status: Acute Code(s): L03.113 - CELLULITIS OF RIGHT UPPER LIMB SNOMED Code(s): 78620047057682798 (2) MSSA bacteremia Current Visit: Yes Status: Acute Code(s): R78.81 - BACTEREMIA; B95.61 - METHICILLIN SUSCEP STAPH INFCT CAUSING DIS CLASSD [place] SNOMED Code(s): 238102578 (3) Penicillin allergy Current Visit: Yes Status: Acute Code(s): Z88.0 - ALLERGY STATUS TO PENICILLIN SNOMED Code(s): 26690802 Plan: 1patient with a fever and subsequently MSSA bacteremia sources right upper arm IV site cellulitis which has been discontinued. 2patient to continue with the cefazolin awaiting the repeat blood culture which if negative will be able to get a midline to finish a 2-week course of cefazolin from the negative blood culture Question Answered Dictation was produced using [employer] dictation software. please excuse any grammatical, word or spelling errors. Time with Patient: Less than 30
[2023-11-07] MEDS: HEPARIN SODIUM,PORCINE 5,000 UNIT/ML 1 ML VIAL SQ SCH (21:07)
[2023-11-07] MEDS: levETIRAcetam 500 MG TAB PO SCH (21:12)
[2023-11-08 08:17] VITALS: BP 117/74; PULSE 90; RESP 18; TEMP 97.7
[2023-11-08] MEDS: PANTOPRAZOLE 40 MG/10 ML VIAL ONE ×3 (15:51→15:53)
[2023-11-08] MEDS: LORazepam 1 MG TAB ONE ×3 (15:51→15:53)
[2023-11-08] MEDS: POTASSIUM CHLORIDE ER 20 MEQ TAB.ER PO ONE (15:51)
[2023-11-08] MEDS: chlordiazePOXIDE 25 MG CAP ONE ×4 (15:51→15:53)
[2023-11-08] MEDS: IBUPROFEN 400 MG TAB ONE ×3 (15:51→15:53)
--- NOTE | 2023-11-09 10:14 | EEG ---
ELECTROENCEPHALOGRAM REPORT CLINICAL HISTORY: This is a 43-year-old gentleman with history of seizure as well as alcohol withdrawal seizure, who presents because of seizure-like activity. The video EEG is obtained to evaluate for seizure epileptiform activity. RELEVANT MEDICATION: Keppra and Ativan. EEG TYPE: This is a routine 21-channel EEG with video using the 10/20 electrode placement system. DESCRIPTION: Wakefulness and drowsiness are obtained. During awake state, the posterior- dominant rhythm was hard to appreciate most of the times because of the excessive beta activity, but it felt that the background appears 11 hertz activity. There is no physiological stage 2 sleep architecture. There is no focal slowing. There is diffuse excessive beta activity predominantly throughout the study. Interictal and ictal is none. ACTIVATION PROCEDURE: Photic stimulation and hyperventilation are not performed. CLINICAL INTERPRETATION: This is an abnormal routine EEG. The background is normal. There is no focal slowing, epileptiform discharge, or seizure on the EEG. The excessive beta activity is likely due to medication induced (Benzodiazepine). If seizure continues to be a concern, recommend a repeat EEG that is sleep deprived or prolonged EEG as an outpatient. Clinical correlation is recommended. MMODL / IJN: [id number] / [facility]
--- NOTE | 2023-11-09 14:20 | P.PN ---
Subjective Progress Note Date: 11/08/23 Principal diagnosis: Reason for follow-up is MSSA bacteremia and right upper extremity cellulitis Patient is a 43-year-old male initial presentation to hospital with acute alcohol withdrawal seizure subsequent developing a fever related to the right upper arm IV site cellulitis with MSSA bacteremia. On today's evaluation that is 11/08/2023,the patient remains to be afebrile, patient is on room air not requiring supplemental oxygen and denies any shortness of breath no chest pain or cough.Patient denies having any nausea or vomiting, no abdominal pain and no diarrhea swelling redness to the right lower extremity has resolved. Repeat blood culture negative as reported by the STORAGE BATTERY INSPECTOR for admitting team Objective - Vital Signs Vital signs: Vital Signs Temp 97.7 F 11/08/23 08:00 Pulse 90 11/08/23 08:00 Resp 18 11/08/23 08:00 BP 117/74 11/08/23 08:00 Pulse Ox 96 11/08/23 08:00 FiO2 Intake & Output 11/07/23 11/08/23 11/08/23 18:59 06:59 18:59 Intake Total 250 Balance 250 Intake: Intake, IV Titration 250 Amount Magnesium Sulfate-D5w Pmx 200 1 gm In Dextrose/Water 1 100ml.bag @ 100 mls/hr IVPB Q1H [facility] Rx#: [id number] ceFAZolin 2 gm In Sodium 50 Chloride 0.9% 50 ml @ 100 mls/hr IVPB 0500,1300, 2100 LOI Rx#:[id number] Other: Voiding Method Toilet # Voids 3 # Bowel Movements 1 - Exam GENERAL DESCRIPTION: Middle-age male lying in bed in no distress RESPIRATORY SYSTEM: Unlabored breathing , decreased breath sounds at bases HEART: S1 S2 regular rate and rhythm , ABDOMEN: Soft , no tenderness EXTREMITIES: Right upper extremity swelling redness decreased - Labs CBC & Chem 7: 11/07/23 02:31 Assessment and Plan (1) Right arm cellulitis Status: Acute Code(s): L03.113 - CELLULITIS OF RIGHT UPPER LIMB SNOMED Code(s): 55267036823194027 (2) MSSA bacteremia Status: Acute Code(s): R78.81 - BACTEREMIA; B95.61 - METHICILLIN SUSCEP [facility] Code(s): 581343972 (3) Penicillin allergy Status: Acute Code(s): Z88.0 - ALLERGY STATUS TO PENICILLIN SNOMED Code(s): 84073176 Plan: 1patient with a fever and subsequently MSSA bacteremia sources right upper arm IV site cellulitis which has been discontinued. 2patient has cleared his bacteremia he has been offered midline and outpatient IV cefazolin versus daptomycin at the infusion clinic however the patient mention he is moving out of the area and is refusing IV antibiotic on discharge importance of IV debrided with bacteremia with MSSA has been explained to the patient continued to refuse discussed with the STORAGE BATTERY INSPECTOR for admitting team attending course of oral Keflex Dictation was produced using [employer] dictation software. please excuse any grammatical, word or spelling errors. Time with Patient: Less than 30
--- NOTE | 2023-11-17 05:52 | P.DS ---
Providers Date of admission: 11/02/23 01:59 Expected date of discharge: 11/08/23 Attending physician: Katherine Vazquez MD Consults: 11/06/23 19:59 Consult Physician Routine Consulting Provider: Gloria Solano Consult Reason/Comments: fevers Do you want consulting provider notified?: Already Contacted 11/07/23 14:51 Consult Physician Routine Consulting Provider: Bienvenido Moore Consult Reason/Comments: seizure Do you want consulting provider notified?: Already Contacted Primary care physician: Stated None Hospital Course: Final diagnosis -Acute alcohol intoxication and withdrawal -Seizure activity x 2 due to alcohol withdrawal MRI brain negative -MSSA Bacteremia from infection IV site of the right AC -Right antecubital site cellulitis due to previous IV site -Chronic alcoholism -Hypokalemia, improved -Hypomagnesemia on admission due to the alcoholism. Discharge disposition Patient is being discharged in a stable condition with guarded prognosis to home. Patient will follow-up with primary care provider to establish in the outpatient setting upon discharge. Patient is to continue with current medications and close outpatient follow-up with infectious disease and neurology as scheduled. Total time taken is greater than 35 minutes. Hospital course This is a 43-year-old male who was recently admitted with acute alcohol intoxication and early withdrawal with delirium tremens with concerns of seizure-like activity. Patient did undergo extensive neurological workup including MRI of the brain which was negative and had been started on Keppra with concerns of seizure-like activity. Neurology recommending continuing Keppra for now with close outpatient follow-up with neurology in 1 to 2 weeks. Patient also evaluated by infectious disease for right IV site cellulitis noted to have MSSA bacteremia from her previous IV site. Patient was maintained on antibiotics in the form of cefazolin showing clinical improvement recommending IV antibiotics on discharge although patient is adamant he has pill form due to lack of traveling and inability to get back and forth to appointments every day for IV antibiotics and will be going home on oral Keflex for 10-day course. Patient has been instructed to follow-up with infectious disease along with neurology outpatient. Patient has been cleared by other consultations. Please refer to consultation notes for further HPI. Currently no reports of chest pain, shortness of breath, or palpitations. Patient is afebrile. No reports of nausea or vomiting and patient is tolerating diet. Patient will be discharged home today. High risk for readmissions given patient's continued alcohol use and noncompliance. Physical exam: Gen: This is a 43-year-old male who is awake, alert and oriented x 3, well- developed, elderly appearing HEENT: Head is atraumatic, normocephalic. Pupils equal, round. Sclerae is anicteric. NECK: Supple. No JVD. No lymphadenopathy. No thyromegaly. LUNGS: Clear to auscultation. No wheezes or rhonchi. No intercostal retractions. HEART: Regular rate and rhythm. No murmur. ABDOMEN: Soft. Bowel sounds are present. No masses. No tenderness. EXTREMITIES: No pedal edema. No calf tenderness. NEUROLOGICAL: Patient is awake, alert and oriented x3. Cranial nerves 2 through 12 are grossly intact. Please refer to medication reconciliation sheet for a list of medications. The impression and plan of care has been dictated by Paty Karimi, Nurse Practitioner as directed. Dr. Jaime MD I have performed a history and examination and MDM of this patient, discussed the same with the dictator, and agree with the dictator's assessment and plan as written ,documented as a scribe. Based on total visit time, I have performed more than 50% of the visit. Patient Condition at Discharge: Fair Plan - Discharge Summary New Discharge Prescriptions: New cloNIDine HCL [Catapres] 0.1 mg PO TID #90 tab cloNIDine HCL [Catapres] 0.1 mg PO DAILY PRN tab PRN Reason: HTN BBP>170 Cephalexin [Keflex] 500 mg PO Q8HR 10 Days #30 cap chlordiazePOXIDE HCl [Librium] 25 mg PO TID #6 cap Ibuprofen [Motrin] 400 mg PO Q6HR PRN #20 tab PRN Reason: MILD PAIN/FEVER>100.5 Acetaminophen Tab [Tylenol] 650 mg PO Q6HR PRN tab PRN Reason: Fever And/ Or Pain levETIRAcetam [Keppra] 500 mg PO Q12HR #60 tab Continue Chlorpheniramine Maleate [Chlor-Trimeton] 4 mg PO Q4H PRN PRN Reason: Allergy Symptoms Hyoscyamine Sulfate [Levsin] 0.125 mg PO QID PRN PRN Reason: Gi Upset Fenofibrate,Micronized [Fenofibrate] 67 mg PO DAILY #30 cap Multivitamins, Thera [Multivitamin (formulary)] 1 each PO DAILY #30 tab Omeprazole [PriLOSEC] 20 mg PO BID 30 Days #60 cap Naltrexone HCl [Revia] 50 mg PO DAILY 30 Days #30 tablet Calcium/Magnesiun/Zinc/Vitamin D 334/134/5mg 1 tab PO TID PRN PRN Reason: muscle cramps Amitriptyline HCl [Elavil] 10 mg PO DAILY #30 tab Folic Acid 1 mg PO DAILY #30 tab Magnesium Oxide [Mag-Ox] 400 mg PO BID #60 tab Thiamine [Vitamin B-1] 100 mg PO DAILY #30 tab lisinopriL [Zestril] 10 mg PO DAILY #30 tab Discontinued cloNIDine HCL [Catapres] 0.1 - 0.3 mg PO Q4H PRN PRN Reason: bp greater than 160/100 Discharge Medication List Calcium/Magnesiun/Zinc/Vitamin D 334/134/5mg 1 tab PO TID PRN 04/05/22 [History] Chlorpheniramine Maleate [Chlor-Trimeton] 4 mg PO Q4H PRN 04/05/22 [History] Hyoscyamine Sulfate [Levsin] 0.125 mg PO QID PRN 04/05/22 [History] Acetaminophen Tab [Tylenol] 650 mg PO Q6HR PRN tab 11/08/23 [Rx] Amitriptyline HCl [Elavil] 10 mg PO DAILY #30 tab 11/08/23 [Rx] Cephalexin [Keflex] 500 mg PO Q8HR 10 Days #30 cap 11/08/23 [Rx] Fenofibrate,Micronized [Fenofibrate] 67 mg PO DAILY #30 cap 11/08/23 [Rx] Folic Acid 1 mg PO DAILY #30 tab 11/08/23 [Rx] Ibuprofen [Motrin] 400 mg PO Q6HR PRN #20 tab 11/08/23 [Rx] Magnesium Oxide [Mag-Ox] 400 mg PO BID #60 tab 11/08/23 [Rx] Multivitamins, Thera [Multivitamin (formulary)] 1 each PO DAILY #30 tab 11/08/23 [Rx] Naltrexone HCl [Revia] 50 mg PO DAILY 30 Days #30 tablet 11/08/23 [Rx] Omeprazole [PriLOSEC] 20 mg PO BID 30 Days #60 cap 11/08/23 [Rx] Thiamine [Vitamin B-1] 100 mg PO DAILY #30 tab 11/08/23 [Rx] chlordiazePOXIDE HCl [Librium] 25 mg PO TID #6 cap 11/08/23 [Rx] cloNIDine HCL [Catapres] 0.1 mg PO DAILY PRN tab 11/08/23 [Rx] cloNIDine HCL [Catapres] 0.1 mg PO TID #90 tab 11/08/23 [Rx] levETIRAcetam [Keppra] 500 mg PO Q12HR #60 tab 11/08/23 [Rx] lisinopriL [Zestril] 10 mg PO DAILY #30 tab 11/08/23 [Rx] Follow up Appointment(s)/Referral(s): Tara Ying MD [Medical Doctor] - 1 Week (Office is not answering at time of discharge. Please call for an appointment.) Gloria Solano MD [STAFF PHYSICIAN] - 11/22/23 2:30 pm Patient Instructions/Handouts: Alcohol Withdrawal (DC), New-Onset Seizure in Adults (DC) Activity/Diet/Wound Care/Special Instructions: Activity limited until follow-up Follow-up with primary care provider to establish on discharge Follow-up with infectious disease outpatient in 1 week Continue frequent handwashing and hygiene and avoid itching or scratching the right inner elbow area Continue antibiotics for 10 days until finished Follow-up with neurologist and continue on Keppra until follow-up Avoid all alcohol intake and exposure to Strongly recommend inpatient alcohol rehab Discharge/Stand Alone Forms: Area PCPs Discharge Disposition: HOME SELF-CARE
--- NOTE | 2023-11-22 17:23 | CT ---
Patient Luis Felipe Lim ID [id number] DOB1980 [id number] Order # EXAMINATION TYPE: CT brain kaur wo con DATE OF EXAM: 10/31/2023 COMPARISON: No comparison available on downtime PACS. HISTORY: Seizure CT DLP: 03/18/2004 mGycm, Automated exposure control for dose reduction was used. CONTRAST: Patient injected with 0 mL of Isovue 300. CT of the brain is performed utilizing 3 mm thick sections through the posterior fossa and 3 mm thick sections through the remaining calvarium. Study is performed within 24 hours of arrival to the hospital. No abnormal hyperdensity is present to suggest an acute intracranial hemorrhage. No mass lesion is evident. No acute infarcts are evident. Ventricles and sulci are appropriate for the patient age. Small amount of soft tissue swelling mainly over the right frontal region. Paranasal sinuses and mastoid air cells within the [id number] are clear. IMPRESSIONS: 1. No acute intracranial process. Follow-up MRI can be performed as clinically indicated. 2. There may be minimal right frontal soft tissue swelling. CT cervical spine. COMPARISON: None CT of the cervical spine is performed in the axial plane at 2 mm thick sections. Reconstructed image s in the coronal, and sagittal plane are reviewed on the computer. No acute fractures are evident. Vertebral body alignment is normal. Minimal disc space narrowing at C6-7 may be present. Disc heights otherwise appear preserved. Vertebral body heights are preserved. No spinal canal stenosis is evident. There is some endplate spurring at C6-7 without significant ante rior thecal sac compression. No neural foraminal stenosis is evident. IMPRESSION: 1. No acute osseous abnormality cervical spine. 2. Mild degenerative disc changes C6-7
--- NOTE | 2023-11-23 16:23 | MR ---
Patient: Luis Felipe Lim Ordering Physician: Unknown, Unknown ID: [id number] Phone, Pager: Phone: N/ A Pager: N/A : 1980 Age/Gender: 43Y, M Primary Location: N/A Procedure: MR brain wo/w Study Da te: 11/04/2023 12:46:06 PM EXAMINATION TYPE: MR brain w con DATE OF EXAM: 11/04/2023 COMPARISON: No comparison available on downtime PACS. HISTORY: Seizure CONTRAST: Performed utilizing 7.5 mL intravenous Gadavist gadolinium contrast. TECHNIQUE: Multiplanar, multiecho imaging on a 3.0 Mayra magnet is performed through the brain. Stud y is performed within 24 hours of arrival to the hospital. The craniovertebral junction is normal. The pituitary is normal. Optic chiasm as visualized is norm al. Diffusion-weighted imaging is performed. No abnormal hyperintensity is present to suggest an acute i ntracranial infarct or acute ischemic change. There is a punctate hyperintensity in the subcortical white matter of the left frontal lobe. Series 6 01 image 16. Punctate right frontal lobe white matter changes present, series 601 image 19 and subcor tical white matter change may be in the right centrum semiovale frontal lobe, series 601 image 27. Th peggy are not out of proportion to the patient's age. Temporal lobes are symmetrical. Signal within the temporal lobes appears normal. Ventricles and sulci are appropriate for the patient age. Postcontrast imaging is reviewed. No suspicious area of enhancement is evident. IMPRESSION: 1. No suspicious acute changes. Postcontrast MRI brain.
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
--- NOTE | 2023-11-30 10:33 | XR ---
Patient: Luis Felipe Lim Ordering Physician: Unknown, Unknown ID: [id number] Phone, Pager: Phone: N/ A Pager: N/A : 1980 Age/Gender: 43Y, M Primary Location: N/A Procedure: XR CHEST 1V Study Date : 11/02/2023 4:41:00 PM EXAMINATION TYPE: XR chest 1V DATE OF EXAM: 11/02/2023 5:10 PM CLINICAL INDICATION: Cough COMPARISON: None TECHNIQUE: XR chest 1V Frontal view of the chest. FINDINGS: Lungs/Pleura: There is no evidence of pleural effusion, focal consolidation, or pneumothorax. Pulmonary vascularity: Unremarkable. Heart/mediastinum: Cardiomediastinal silhouette is unremarkable. Musculoskeletal: No acute osseous pathology. IMPRESSION: No acute cardiopulmonary disease/process.
--- NOTE | 2023-12-01 16:32 | XR ---
Patient Luis Felipe Lim ID [id number] DOB1980 [id number] Order # EXAMINATION TYPE: XR thoracic spine 2V DATE OF EXAM: 10/31/2023 COMPARISON: No comparison available on downtime PACS. HISTORY: Detox TECHNIQUE: 2 views thoracic spine. Thoracic swimmer's view was obtained. FINDINGS: 12 thoracic type vertebral bodies. Pedicles are intact. Disc heights are preserved. Vertebr al body heights are preserved. Alignment appears normal. IMPRESSION: 1. Unremarkable thoracic spine
--- NOTE | 2023-12-10 14:13 | PN ---
PROGRESS NOTE DATE OF SERVICE: 11/06/2023 LOCATION: [facility] REASON FOR FOLLOWUP: 1. MSSA bacteremia. 2. Right upper extremity cellulitis. INTERVAL HISTORY: Patient is afebrile. He is breathing comfortably. No chest pain, shortness of breath, or cough. No nausea, vomiting. Overall pain and redness to the right upper extremity has decreased and no drainage. PHYSICAL EXAMINATION: VITAL SIGNS: Blood pressure is 107/77 with a pulse of 81, temperature 97.6. GENERAL DESCRIPTION: This is a middle-aged male, up in the chair, in no distress. RESPIRATORY SYSTEM: Unlabored breathing. Clear to auscultation anteriorly. HEART: S1, S2. Regular rate and rhythm. ABDOMEN: Soft, no tenderness. EXTREMITIES: Right upper extremity, area of swelling and redness has decreased. LABORATORY DATA: Repeat blood culture is currently pending. DIAGNOSTIC IMPRESSION AND PLAN: The patient with MSSA bacteremia secondary to right upper extremity IV site cellulitis, which has been discontinued. We are waiting for repeat blood cultures to be finalized. If negative, he will get a midline. Plan is for 2 weeks of IV cefazolin from negative blood cultures. Questions and concerns were answered. MMODL / IJN: [id number] /
--- NOTE | 2023-12-10 14:13 | PN ---
PROGRESS NOTE DATE OF SERVICE: 11/05/2023 LOCATION: 473. REASON FOR FOLLOWUP: Left upper extremity IV site cellulitis and MSSA bacteremia. INTERVAL HISTORY: The patient is afebrile, has been breathing comfortably. No chest pain, shortness of breath, or cough. No nausea, vomiting. No abdominal pain or any worsening pain to the right upper extremity. PHYSICAL EXAMINATION: VITAL SIGNS: Blood pressure 127/86, pulse of 89, temperature is 97.6. He is 97% on room air. GENERAL DESCRIPTION: This is a middle-aged male, lying in bed, in no distress. RESPIRATORY SYSTEM: Unlabored breathing. Clear to auscultation anteriorly. HEART: S1, S2. Regular rate and rhythm. ABDOMEN: Soft, no tenderness. LABORATORY DATA: White count 6.26, creatinine 0.56. Blood culture positive for MSSA. DIAGNOSTIC IMPRESSION AND PLAN: The patient with MSSA bacteremia, source is right upper extremity IV site cellulitis and now with evidence of bacteremia. He will discontinue vancomycin. Start the patient on cefazolin 2 g q.8 hours. Blood cultures will be repeated to document clearance of the bacteremia and will need IV antibiotic on discharge. This was discussed with the OUTCOMES MANAGER for admitting team. MMODL / IJN: [id number] /
--- NOTE | 2023-12-10 14:13 | CONS ---
Date of service is 11/03/2023 CONSULTATION REASON FOR CONSULTATION: Fever. HISTORY OF PRESENT ILLNESS: The patient is a 43-year-old male with a past medical history significant for seizure disorder and heavy drinking, was brought into the hospital 3 days ago for evaluation of seizure. Apparently, the patient did have 2 seizure at home, witnessed by the daughter. EMS was called and the patient has been brought into the hospital. The patient has been drinking heavily. The patient was afebrile on presentation to the hospital; however, he did spike a fever of 101 degrees Fahrenheit last evening. For that, the patient did have blood cultures done and Infectious Disease was consulted. The patient denies having any headache or URI symptoms. Denies having any photophobia. The patient denies having any chest pain, shortness of breath, or cough. No nausea, no vomiting. No abdominal pain. No diarrhea. The patient is constipated. Denies having any swelling to the joints or lower extremity redness. The patient did have an IV to the right forearm. Apparently, that was placed by the EMS and the patient has developed swelling, redness to the site yesterday which IV has been discontinued. The patient is complaining of pain, especially when he bends his right elbow, mostly dull aching to sharp, about 5/10, and no radiation. He did have some skin excoriation, but no drainage. REVIEW OF SYSTEMS: Positive points have been mentioned in HPI. Rest of the systems are negative. PAST MEDICAL HISTORY: Seizure disorder. PAST SURGICAL HISTORY: Tonsillectomy and carpal tunnel surgery. SOCIAL HISTORY: He is a heavy drinking. Denies smoking or drug use. FAMILY HISTORY: No pertinent findings noticed. ALLERGIES: To penicillin with a rash. No history of anaphylaxis. MEDICATIONS: 1. Currently, the patient is on Rocephin 1 g daily. 2. He is on thiamine. 3. Chlordiazepoxide. 4. Tylenol. 5. Ibuprofen. 6. Zofran. PHYSICAL EXAMINATION: VITAL SIGNS: Blood pressure is 111/71, pulse of 101, temperature 99.6, T-max is 101.6, he is 96% on room air. GENERAL DESCRIPTION: This is a middle-aged male, lying in bed in no distress. No tachypnea. No accessory muscles of respiration use. HEENT: Shows no pallor or scleral icterus. Oral mucosa membranes moist. No pharyngeal erythema or thrush. NECK: Trachea central. No thyromegaly. LUNGS: Unlabored breathing. Clear to auscultation anteriorly. No wheeze or crackle. HEART: S1 and S2. Regular rate and rhythm. ABDOMEN: Soft. No tenderness. No guarding. No rigidity. No organomegaly. EXTREMITIES: No edema in the feet. Examination of right upper extremity, right antecubital fossa did have area of swelling, redness, slightly warm and some skin excoriation. No drainage. NEUROLOGIC: The patient is awake, alert, and oriented x3. Mood and affect are normal. LABORATORY DATA: Hemoglobin is 14.4, white count 10.72 with left shift. His BUN is 27, creatinine is 0.65, potassium 3.3. Liver enzymes are normal. Apparently, he did have a COVID-19 swab, but results not available in the chart. The patient did have a chest x- ray, no acute cardiopulmonary disease process. He did have CT of the brain that was negative for any bleed. Minimal right frontal soft tissue swelling. CT cervical spine did not show any acute abnormality. CT of the thoracic spine unremarkable. DIAGNOSTIC IMPRESSION/PLAN: 1. Patient with fever, nosocomial. This patient is admitted to the hospital with seizure activity, being evaluated and managed by Neurology and apparently, the patient is scheduled for an MRI of the brain, could be related to his heavy drinking. Etiology of the fever is more likely to the right upper arm IV site cellulitis which had been subsequently discontinued. We need to cover for the gram- positive skin riya. 2. We will discontinue Rocephin. 3. We will start the patient on vancomycin pharmacy to dose. Watch his skin function closely while waiting for the culture to finalize. We will follow on clinical condition and culture to further adjust medication if needed. Thank you for this consultation. We will follow this patient along with you. MMODL / IJN: [id number] / ADAMS
--- NOTE | 2023-12-10 14:13 | PN ---
PROGRESS NOTE DATE OF SERVICE: 11/04/2023 LOCATION: 473. REASON FOR FOLLOWUP: Fever secondary to right upper arm IV site cellulitis. INTERVAL HISTORY: The patient is afebrile. He is breathing comfortably. Has no chest pain or shortness of breath. Occasional cough. No abdominal pain. Overall, pain to the right upper arm has decreased in intensity. PHYSICAL EXAMINATION: VITAL SIGNS: Blood pressure 128/81, pulse of 89, temperature 98.1, he is 96% on room air. GENERAL: The patient is a middle-aged male, lying in bed, in no distress. RESPIRATORY SYSTEM: Unlabored breathing. Clear to auscultation anteriorly. HEART: S1, S2. Regular rate and rhythm. ABDOMEN: Soft. No tenderness. EXTREMITIES: Right upper arm swelling has slightly decreased. LABORATORY DATA: Creatinine 0.58. White count 10.72. DIAGNOSTIC IMPRESSION AND PLAN: Patient with fever, source likely right upper arm intravenous site cellulitis, which has been discontinued. We are waiting for the cultures. Continue vancomycin. Watch his kidney function closely, which is currently normal. Daughter at the bedside. Questions were answered. MMODL / IJN: [id number] /
--- NOTE | 2024-01-06 13:41 | XR ---
EXAMINATION TYPE: XR chest 2V DATE OF EXAM: 10/31/2023 COMPARISON: No comparison available on downtime PACS. INDICATION: Detox TECHNIQUE: Frontal and lateral views of the chest are obtained. FINDINGS: The heart size is normal. The pulmonary vasculature is normal. The lungs are clear. IMPRESSION: 1. No acute pulmonary process.
== END 2023-11-08 17:00 | disposition home or self-care (01) | DRG 53 ==
LOC: 4SSUR 01:59 → UNDOADMIN 01:59 → 4SSUR 19:44 → UNDOADMIN 11-02 01:59 → 4SSUR 11-02 01:59 → UNDODISIN 11-06 15:15
PROVIDERS: ADMIT Internal Medicine; ATTEND Internal Medicine
PROC: 05HC33Z Insertion of Infusion Device into Left Basilic Vein, Percutaneous Approach (ICD-10-PCS; principal; 2023-11-08 18:30)
DX: G40.509 Epileptic seizures related to external causes, not intractable, without status epilepticus (principal); K59.00 Constipation, unspecified; F10.231 Alcohol dependence with withdrawal delirium; B95.61 Methicillin susceptible Staphylococcus aureus infection as the cause of diseases classified elsewhere; E83.42 Hypomagnesemia; E87.6 Hypokalemia; F10.229 Alcohol dependence with intoxication, unspecified; L03.113 Cellulitis of right upper limb; R78.81 Bacteremia; T80.29XA Infection following other infusion, transfusion and therapeutic injection, initial encounter; Y84.8 Other medical procedures as the cause of abnormal reaction of the patient, or of later complication, without mention of misadventure at the time of the procedure; Z87.820 Personal history of traumatic brain injury; Z88.0 Allergy status to penicillin; Z91.199 Patient's noncompliance with other medical treatment and regimen due to unspecified reason; Z53.29 Procedure and treatment not carried out because of patient's decision for other reasons; Z79.899 Other long term (current) drug therapy
CPT/HCPCS: 36410; 70450; 70553; 71045; 71046; 72070; 72125; 76937; 80048; 83735; 87040; 87077; 87186; 93005; 95816; 96374; 96376; 99285